=== PATIENT | male | born 1935 | race Caucasian/White ===

== ENCOUNTER 2018-10-04 09:58 | Inpatient (IN) | payer MEDICARE ==
[~2018-10-04] VITALS: Ht 190.5 cm; Wt 79.4 kg
[2018-10-04] MEDS ORDERED: SODIUM CHLORIDE 0.9% 1000ML 1,000 ML IV STA (10:09)
[2018-10-04] MEDS ORDERED: ONDANSETRON HCL INJ 2MG/ML 2ML 2 MG/ML VIAL IV NR (10:15)
[2018-10-04] MEDS ORDERED: VANCOMYCIN 1GM/NS 250 ML 250 ML IV SCH (11:00)
[2018-10-04] MEDS ORDERED: SODIUM CHLORIDE 0.9% 1000ML 1,000 ML ONE (11:02)
[2018-10-04 11:10] LABS: BASOPHILS % 0.2 % (0.0-1.0); EOSINOPHILS # (AUTO) 0.1 (0.0-0.4); EOSINOPHILS % 0.3 % (0.0-6.0); HEMATOCRIT 46.5 % (38.2-49.6); HEMOGLOBIN 16.5 g/dL (14.0-18.0); LYMPHOCYTES # (AUTO) 0.4 (1.0-3.2); LYMPHOCYTES % 1.7 % (18.0-39.1); MEAN CORPUSCULAR HEMOGLOBIN 30.8 pg (28-32); MEAN CORPUSCULAR HGB CONC 35.5 g/dL (31-35); MEAN CORPUSCULAR VOLUME 86.8 fL (81-99); MONOCYTES % 4.5 % (4.4-11.3); NEUTROPHILS # (AUTO) 20.3 (2.1-6.9); NEUTROPHILS % 92.8 % (38.7-80.0); PLATELET COUNT 185 x10e3/uL (140-360); RED BLOOD COUNT 5.36 x10e6/uL (4.3-5.7); RED CELL DISTRIBUTION WIDTH 13.2 % (11.7-14.4)
--- NOTE | 2018-10-04 11:16 | Diagnostic Imaging Report ---
EXAM: CHEST SINGLE (PORTABLE), AP Portable DATE: 10/04/2018 Time stamp on exam: 10:36 AM INDICATION: Abdominal pain with diarrhea and vomiting COMPARISON: None FINDINGS: LINES/TUBES: None LUNGS: Bibasilar airspace opacities compatible with atelectasis and/or infiltrate. PLEURA: No effusions or pneumothorax. HEART AND MEDIASTINUM: Normal size and contour. BONES AND SOFT TISSUES: No acute findings. There is a rudimentary left cervical rib. IMPRESSION: Bibasilar airspace opacities. Signed by: Dr. Agus Lynn DO on 10/04/2018 11:13 AM
[2018-10-04 11:34] LABS: ALBUMIN/GLOBULIN RATIO 1.3 (0.8-2.0); ANION GAP 18.6 mmol/L (8-16); CALCIUM 9.7 mg/dL (8.4-10.2); CREATININE, SERUM 2.24 mg/dL (0.72-1.25); POTASSIUM 3.6 mmol/L (3.5-5.1)
[2018-10-04 11:40] LABS: CREATINE KINASE MB 0.9 ng/mL (0-5.0)
[2018-10-04] MEDS ORDERED: SODIUM CHLORIDE 0.9% 1000ML 1,000 ML IV SCH (11:45)
[2018-10-04] MEDS ORDERED: CEFEPIME 1GM/NS 0.9% 50 ML 50 ML IV SCH ×2 (12:00)
[2018-10-04] MEDS ORDERED: CEFEPIME HCL 1 GM VIAL IV SCH (12:00)
--- OUTSIDE RECORDS SUMMARY | 2018-10-04 12:26 | XMS REPORT ---
Author [facility] Address Unknown Phone Unavailable Care Team Providers Care Watch Dial Printer Name Role Phone Ahmet BULLOCK Unavailable Unavailable Problems This patient has no known problems. Allergies, Adverse Reactions, Alerts This patient has no known allergies or adverse reactions. Medications This patient has no known medications. Results Test Description Test Time Test Comments Text Results Atomic Results Result Comments CHEST SINGLE (PORTABLE) 2018-10-04 11:10:00 [place] [address] Patient Name: DREW LIZ MR #: [id number] : 1935 Age/Sex: 82/M Req #: [id number] Adm Physician: Ordered by: ELFEGO BULLOCK MD Report #: [id number] Location: ER Room/Bed: Procedure: [id number] DX/CHEST SINGLE (PORTABLE) Exam Date: 10/04/18 Exam Time: 1025 REPORT STATUS: Signed EXAM: CHEST SINGLE (PORTABLE), AP Portable DATE: 10/04/2018 Time stamp on exam: 10:36 AM INDICATION: Abdominal pain with diarrhea and vomiting COMPARISON: None FINDINGS: LINES/TUBES: None LUNGS: Bibasilar airspace opacities compatible with atelectasis and/or infiltrate. PLEURA: No effusions or pneumothorax. HEART AND MEDIASTINUM: Normal size and contour. BONES AND SOFT TISSUES: No acute findings. There is a rudimentary left cervical rib. IMPRESSION: Bibasilar airspace opacities. Signed by: Dr. Benito Kinsey DO on 10/04/2018 11:13 AM Dictated By: BENITO KINSEY DO 1113 Transcribed By: NEHAL on 10/04/18 1113 COPY TO: ELFEGO BULLOCK MD
[2018-10-04] MEDS: SODIUM CHLORIDE 0.9% 1000ML 1,000 ML IV SCH ×2 (13:06→23:05)
--- NOTE | 2018-10-04 13:07 | NUR ---
DR DELANEY AT PT BEDSIDE
[2018-10-04] MEDS ORDERED: DIATRIZOATE MEGL/DIATRIZOA SOD 30 ML BTL PO ONE (13:28)
--- NOTE | 2018-10-04 13:33 | NUR ---
BLADDER SCANNER SHOWS [address] DELANEY CALLED AND NOTIFIED
--- NOTE | 2018-10-04 13:35 | NUR ---
PER DR DELANEY, NOTIFY MED SURG TO RE-DO BLADDER SCANNER IN 1-2 HR AND CALL HIM WITH RESULTS
[2018-10-04 14:00] VITALS: BP 124/72
--- NOTE | 2018-10-04 14:00 | NUR ---
Pt received to floor at this time. Pt is a0x2-3 and able to verbalize needs. Pt is pleasantly confused and follows directions easily. Ambulatory with assist. Condom cath in place with no urine noted at this time. Girlfriend is at bedside at this time. Pt denies any pain. Dressing to face is dry and intact.
[2018-10-04 14:12] VITALS: BP 124/72
[2018-10-04] MEDS ORDERED: ASPIR 8181 MG PO (14:24)
[2018-10-04] MEDS ORDERED: ARICEPT5 MG PO (14:24)
[2018-10-04] MEDS ORDERED: PRAVASTATIN SOD40 MG PO (14:24)
[2018-10-04] MEDS ORDERED: MULTI-VITAMIN1 EACH PO (14:24)
[2018-10-04] MEDS ORDERED: DOXAZOSIN MESYLA1 MG PO (14:24)
[2018-10-04] MEDS ORDERED: HYDROCHLOROTHIA25 MG PO (14:24)
--- NOTE | 2018-10-04 15:47 | Diagnostic Imaging Report ---
EXAM: CT ABDOMEN AND PELVIS without IV CONTRAST DATE: 10/04/2018 Time stamp on Exam: 3:16 PM INDICATION: Colitis COMPARISON: None TECHNIQUE: The abdomen and pelvis were scanned using a multidetector helical scanner. Coronal and sagittal reformations were obtained. Routine protocol performed. Technique modification was accomplished maintain the lowest dose possible to the patient. IV Contrast: None Oral Contrast: Oral positive contrast intermixed with water Radiation Dose: Total DLP 641.60 mGy*cm Estimated effective dose: DLP x 0.015 x size factor FINDINGS: LOWER THORAX: Basilar opacities right greater than left compatible with pneumonia; likely aspiration. Coronary artery calcification. LIVER: No masses BILIARY: The gallbladder is unremarkable. No ductal dilatation. SPLEEN: No masses PANCREAS: No masses ADRENALS: No nodules KIDNEYS: No hydronephrosis with bilateral small kidneys and the right side measuring 7.7 cm and the left side measuring 9.1 cm. GI TRACT: No distention, wall thickening or evidence of obstruction. The appendix is normal. VESSELS: Atherosclerotic vascular calcification. PERITONEUM/RETROPERITONEUM: No free air or fluid LYMPH NODES: No lymphadenopathy REPRODUCTIVE ORGANS: Unremarkable BLADDER: Unremarkable SOFT TISSUES: There are large bilateral hydroceles. BONES: No suspicious bone lesions. Degenerative changes of the spine. IMPRESSION: 1. Bibasilar airspace opacities compatible with pneumonia; likely aspiration 2. Small bilateral kidneys. 3. No evidence to suggest colitis or bowel wall thickening. 4. Large bilateral hydroceles. Signed by: Dr. Agus Lynn DO on 10/04/2018 3:44 PM
[2018-10-04 15:51] VITALS: BP 121/62
[2018-10-04] MEDS: VANCOMYCIN 250MG/5ML ORAL SOLN PO SCH ×2 (16:27→18:03)
[2018-10-04] MEDS ORDERED: LIDOCAINE HCL 2% JELLY 5 ML TUBE TOP ONE (18:30)
--- NOTE | 2018-10-04 18:30 | NUR ---
Spoke with Dr. Merchant at this time to report that pt had not voided and bladder scan revealed that he had 247ml. Received orders to try to insert perez catheter and if unsuccessful to consult Dr. Nat Olivas. CT scan result given to Dr. Merchant at this time aswell and no new orders fro that at this time. Home medications not renewed at this time by Dr. Merchant.
--- NOTE | 2018-10-04 18:40 | NUR ---
Pt voided about 200ml on his own at this time. Notified Dr. Merchant and received orders to hold of on the perez catheter at this time.
--- NOTE | 2018-10-04 19:10 | NUR ---
Beside report walking rounds complete. Pt resting in bed and in no apparent distress. Pt at bedside. Pt room air and tele. All safety measures ensured.
[2018-10-04 20:00] VITALS: BP 120/87
--- NOTE | 2018-10-04 20:22 | NUR ---
Pt concerned about pt not getting home meds for tonight. Called and spoke with Dr. Merchant and MD bazan for pt to restart home meds.
[2018-10-04 20:55] VITALS: BP 120/87
[2018-10-04] MEDS ORDERED: ATORVASTATIN 20 MG TAB PO SCH (21:00)
[2018-10-04] MEDS: HEPARIN SOD (PORCINE) 5,000 UNIT/ML VIAL SC SCH (21:16)
[2018-10-04] MEDS: DOXAZOSIN MESYLATE 2 MG TAB PO SCH (21:16)
[2018-10-04] MEDS: DONEPEZIL HCL 5 MG TAB PO SCH (21:16)
[2018-10-04] MEDS: ATORVASTATIN 40 MG TAB PO SCH (21:17)
[2018-10-05] VITALS (8 sets, daily range): BP systolic 137–151; BP diastolic 61–78
[2018-10-05] MEDS: VANCOMYCIN 250MG/5ML ORAL SOLN PO SCH ×3 (01:07→13:21)
[2018-10-05 01:33] LABS: BILIRUBIN,URINE NEGATIVE (NEGATIVE); CLARITY,URINE CLOUDY (CLEAR); COLOR,URINE YELLOW (YELLOW); KETONES,URINE NEGATIVE (NEGATIVE); LEUKOCYTE ESTERASE ,URINE NEGATIVE (NEGATIVE); NITRITE,URINE NEGATIVE (NEGATIVE); PROTEIN,URINE DIPSTICK NEGATIVE (NEGATIVE); URINE UROBILINOGEN 0.2 mg/dL (0.2 - 1)
[2018-10-05 01:42] LABS: AMORPHOUS SEDIMENT,URINE FEW (FEW); BACTERIA,URINE MANY /HPF; EPITHELIAL CELLS,URINE FEW /LPF; MUCUS,URINE MODERATE (RARE)
--- NOTE | 2018-10-05 05:42 | Diagnostic Imaging Report ---
Examination: Single AP view of the chest. COMPARISON: None. INDICATION: sepsis DISCUSSION: Lines/tubes: None. Lungs: The lungs are well inflated and clear. No pneumonia or pulmonary edema. Pleura: No pleural effusion or pneumothorax. Heart and mediastinum: The heart and the mediastinum are unremarkable. Bones and soft tissues: No acute bony abnormalities. IMPRESSION: 1. No acute cardiopulmonary abnormalities. Signed by: Dr. Alfonso Blanchard M.D. on 10/05/2018 5:39 AM
[2018-10-05 05:53] LABS: BASOPHILS % 0.3 % (0.0-1.0); EOSINOPHILS # (AUTO) 0.3 (0.0-0.4); EOSINOPHILS % 2.6 % (0.0-6.0); HEMATOCRIT 37.2 % (38.2-49.6); HEMOGLOBIN 13.1 g/dL (14.0-18.0); LYMPHOCYTES # (AUTO) 1.6 (1.0-3.2); LYMPHOCYTES % 14.2 % (18.0-39.1); MEAN CORPUSCULAR HEMOGLOBIN 31.2 pg (28-32); MEAN CORPUSCULAR HGB CONC 35.2 g/dL (31-35); MEAN CORPUSCULAR VOLUME 88.6 fL (81-99); MONOCYTES % 8.8 % (4.4-11.3); NEUTROPHILS # (AUTO) 8.2 (2.1-6.9); NEUTROPHILS % 73.6 % (38.7-80.0); PLATELET COUNT 139 x10e3/uL (140-360); RED CELL DISTRIBUTION WIDTH 13.5 % (11.7-14.4)
[2018-10-05 06:00] LABS: INR 1.06; PROTHROMBIN TIME 14.3 seconds (11.9-14.5)
[2018-10-05 06:01] LABS: PARTIAL THROMBOPLASTIN TIME 35.4 seconds (23.8-35.5)
[2018-10-05 06:10] LABS: ALBUMIN/GLOBULIN RATIO 1.3 (0.8-2.0); ANION GAP 10.1 mmol/L (8-16); CREATININE, SERUM 1.53 mg/dL (0.72-1.25); POTASSIUM 3.1 mmol/L (3.5-5.1)
[2018-10-05 06:20] LABS: CALCIUM 8.2 mg/dL (8.4-10.2)
[2018-10-05] MEDS: SODIUM CHLORIDE 0.9% 1000ML 1,000 ML IV SCH (06:41)
[2018-10-05] MEDS: HYDROCHLOROTHIAZIDE 25 MG TAB PO SCH (08:23)
[2018-10-05] MEDS: HEPARIN SOD (PORCINE) 5,000 UNIT/ML VIAL SC SCH ×2 (08:23→20:47)
[2018-10-05] MEDS: DOXAZOSIN MESYLATE 2 MG TAB PO SCH (08:23)
[2018-10-05] MEDS: MULTIVITAMINS/MINERALS TAB PO SCH (08:23)
[2018-10-05] MEDS ORDERED: VANCOMYCIN 1GM/NS 250 ML 250 ML IV SCH (09:00)
[2018-10-05] MEDS ORDERED: POTASSIUM CHLORIDE 20 MEQ TAB CR PO ONE (10:30)
[2018-10-05] MEDS: CEFTRIAXONE SOD 1 GM/NS 50 ML 50 ML IV SCH (14:25)
--- NOTE | 2018-10-05 15:55 | NUR ---
DC PLAN: PT AND GF STATES THEY ARE WAITING ON TEST RESULTS. STATES THEY MAY DC THIS WEEKEND.
--- NOTE | 2018-10-05 19:08 | NUR ---
PATIENT IS IN STABLE CONDITION WITH NO S/S RESPIRATORY DISTRESS. NO PAIN VOICED. IV SALINE LOCKED. TELEMETRY APPLIED. FAMILY MEMBERS PRESENT IN ROOM. BED ALARM ON. CALL LIGHT IS WITHIN REACH, PATIENT INSTRUCTED TO CALL FOR ASSISTANCE NEEDED. BEDSIDE REPORT COMPLETED WITH ONCOMING NURSE.
--- NOTE | 2018-10-05 19:15 | NUR ---
Patient received sitting up in bed. AAO x 3. Family at bedside. Patient had no c/o pain. No signs of respiratory distress. Dressing to nose CDI. Telemetry in place. Fall precautions implemented. Patient instructed to call for assistance when needed. Call light within reach.
[2018-10-05] MEDS: DONEPEZIL HCL 5 MG TAB PO SCH (20:47)
[2018-10-05] MEDS: ATORVASTATIN 40 MG TAB PO SCH (20:47)
[2018-10-06 01:07] VITALS: BP 161/74
[2018-10-06 05:22] VITALS: BP 134/63
--- NOTE | 2018-10-06 06:26 | NUR ---
Patient resting comfortably. Shift report given to oncoming nurse.
--- NOTE | 2018-10-06 06:51 | NUR ---
PATIENT IS AWAKE AND IN STABLE CONDITION WITH NO S/S RESPIRATORY DISTRESS. NO PAIN VOICED. FAMILY MEMBER PRESENT IN ROOM. BED ALARM ON. CALL LIGHT IS WITHIN REACH, PATIENT INSTRUCTED TO CALL FOR ASSISTANCE NEEDED.
[2018-10-06 08:02] VITALS: BP 142/75
[2018-10-06] MEDS: CEFTRIAXONE SOD 1 GM/NS 50 ML 50 ML IV SCH (08:13)
[2018-10-06] MEDS: HEPARIN SOD (PORCINE) 5,000 UNIT/ML VIAL SC SCH (08:13)
[2018-10-06] MEDS: DOXAZOSIN MESYLATE 2 MG TAB PO SCH (08:14)
[2018-10-06] MEDS: HYDROCHLOROTHIAZIDE 25 MG TAB PO SCH (08:14)
[2018-10-06] MEDS: MULTIVITAMINS/MINERALS TAB PO SCH (08:14)
[2018-10-06] MEDS ORDERED: CEFTRIAXONE SOD 1 GM/NS 50 ML 50 ML IV SCH (09:00)
[2018-10-06 09:20] VITALS: BP 142/75
[2018-10-06 10:01] LABS: HEMATOCRIT 39.5 % (38.2-49.6); HEMOGLOBIN 13.4 g/dL (14.0-18.0); MEAN CORPUSCULAR HEMOGLOBIN 30.7 pg (28-32); MEAN CORPUSCULAR HGB CONC 33.9 g/dL (31-35); MEAN CORPUSCULAR VOLUME 90.4 fL (81-99); PLATELET COUNT 139 x10e3/uL (140-360); RED BLOOD COUNT 4.37 x10e6/uL (4.3-5.7); RED CELL DISTRIBUTION WIDTH 13.1 % (11.7-14.4)
[2018-10-06 10:07] LABS: ANION GAP 11.3 mmol/L (8-16); CREATININE, SERUM 1.28 mg/dL (0.72-1.25); MAGNESIUM 1.6 MG/DL (1.3-2.1); POTASSIUM 3.3 mmol/L (3.5-5.1)
[2018-10-06 12:03] VITALS: BP 142/63
[2018-10-06 12:13] LABS: EOSINOPHILS % (MANUAL) 5 % (0-7); LYMPHOCYTES % (MANUAL) 30 % (19-48); MONOCYTES % (MANUAL) 5 % (3.4-9.0); NEUTROPHILS % (MANUAL) 60 % (40-74)
--- NOTE | 2018-10-06 13:16 | NUR ---
INFORMED DR. DELANEY OF PATIENT'S POTASSIUM LEVEL OF 3.3- AWAITING CALLBACK.
[2018-10-06] MEDS ORDERED: POTASSIUM CHLORIDE 20 MEQ TAB CR PO NR (13:46)
[2018-10-06] MEDS ORDERED: MAGNESIUM SULF 1GRAM/DEXTROSE 100 ML IV ONE (14:00)
[2018-10-06] MEDS ORDERED: LEVAQUIN500 MG PO (15:21)
[2018-10-06] MEDS ORDERED: ACIDOPHILUS1 EAC1 PO (15:22)
[2018-10-06 16:15] VITALS: BP 151/69
--- NOTE | 2018-10-06 17:55 | NUR ---
PATIENT DISCHARGE HOME- PATIENT OFF THE UNIT AT 1734 PER WHEELCHAIR ACCOMPANIED BY PCT TO THE PATIENT'S PERSONAL VEHICLE. PATIENT IN STABLE CONDITION WITH NO S/S OF RESPIRATORY DISTRESS. NO PAIN VOICED. DRESSING TO NOSE AREA REMAINED DRY AND INTACT. IV REMOVED WITH TIP INTACT. DISCHARGE TEACHING, INSTRUCTIONS, AND MEDICATIONS GIVEN TO THE PATIENT. ALL PERSONAL ITEMS TAKEN WITH THE PATIENT AND HIS .
--- NOTE | 2018-10-06 19:30 | Discharge Summary ---
PRIMARY CARE DOCTOR: Dr. Jennifer Bruno. FINAL DIAGNOSIS: Sepsis present on admission possibly due to urinary tract infection. SECONDARY DIAGNOSES: 1. Dementia. 2. Urinary retention. 3. Hydrocele. CONSULTANTS: None. PROCEDURES/STUDIES PERFORMED: CT. HISTORY: Per H and P. HOSPITAL COURSE: The patient was admitted with sepsis. The patient was afebrile, however, he did have a white count of 22. With hydration, his acute kidney injury resolved. Creatinine was 2.2, at the time of discharge is 1.3. This is likely his baseline. The patient's diarrhea resolved. Empirically, he did get oral vancomycin. Clostridium difficile toxin was negative. CTA of the abdomen and pelvis did not show any colitis, however, it does show bilateral airspace opacities compatible with pneumonia, however, clinically there is no evidence of pneumonia. The patient received IV Rocephin here at the hospital. He will go home on Levaquin. The patient does have a hydrocele and also urinary retention, although still able to urinate. Urinalysis did show pyuria. Urine culture so far is negative at 24 hours. The patient was seen and examined today. It took 32 minutes total to discharge this patient including updating his primary care doctor, whom he will follow up in a week. CONDITION ON DISCHARGE: Improved. DISCHARGE MEDICATIONS: Please see medication reconciliation form. MD JOHN Brock/RUBEN /[id number]
== END 2018-10-06 17:34 | disposition home or self-care (01) | DRG 872 ==
LOC: ER 09:58 → ERHOLD 11:49 → MED/SURG3 14:07
PROVIDERS: ADMIT Internal Medicine; ATTEND Internal Medicine
DX: A41.9 Sepsis, unspecified organism (principal); N39.0 Urinary tract infection, site not specified; N17.9 Acute kidney failure, unspecified; F03.90 Unspecified dementia, unspecified severity, without behavioral disturbance, psychotic disturbance, mood disturbance, and anxiety; N43.3 Hydrocele, unspecified; R53.1 Weakness; R19.7 Diarrhea, unspecified; R65.20 Severe sepsis without septic shock; E86.0 Dehydration; C44.301 Unspecified malignant neoplasm of skin of nose; Z87.891 Personal history of nicotine dependence; Z66 Do not resuscitate; R33.9 Retention of urine, unspecified
CPT/HCPCS: 36415; 71045; 74176; 80048; 80053; 81001; 82550; 82553; 83690; 83735; 84484; 85007; 85025; 85027; 85610; 85730; 87086; 87493; 99284; J0692; J0696; J1644; J2405; J3370; J3475; J7030